=== PATIENT | female | born 2000 | race Caucasian/White ===

== ENCOUNTER 2023-03-23 20:39 | Emergency (ER) | payer MEDICAID, OTHER ==
--- NOTE | 2023-03-23 20:41 | ERPHSYRPT ---
- History of Present Illness Time Seen by Provider: 03/23/23 20:41 Source: patient Exam Limitations: no limitations Physician History: This is a right-handed 22-year-old white female who accidentally cut her left thumb with a knife while trying to separate frozen hamburger patties apart. Patient states her tetanus status is up-to-date. The laceration is on the palmar aspect and measures approximately 2 cm in length Timing/Duration: today Quality: painful Severity: mild Location: hands (Left thumb) Associated Symptoms: denies symptoms Allergies/Adverse Reactions: No Known Drug Allergies Allergy (Verified 03/23/23 20:57) Home Medications: No Reportable Medications [No Reported Medications] 03/23/23 [History] Travel Risk - International Travel Have you traveled outside of the country in past 3 weeks: No - Coronavirus Screening Are you exhibiting any of the following symptoms?: No Close contact with a COVID-19 positive Pt in past 14-21 Days: No - Review of Systems Constitutional: No Symptoms Eyes: No Symptoms Ears, Nose, & Throat: No Symptoms Respiratory: No Symptoms Cardiac: No Symptoms Abdominal/Gastrointestinal: No Symptoms Genitourinary Symptoms: No Symptoms Musculoskeletal: Injury (Left hand) Skin: Other (2 cm laceration left thumb palmar aspect) Neurological: No Symptoms Psychological: No Symptoms Endocrine: No Symptoms Hematologic/Lymphatic: No Symptoms Immunological/Allergic: No Symptoms All Other Systems: Reviewed and Negative - Past Medical History Pertinent Past Medical History: No - Past Surgical History Past Surgical History: No - Nursing Vital Signs Nursing Vital Signs: Initial Vital Signs Temperature 99.0 F 03/23/23 21:01 Pulse Rate 116 H 03/23/23 21:01 Respiratory Rate 18 03/23/23 21:01 Blood Pressure 119/68 03/23/23 21:01 O2 Sat by Pulse Oximetry 100 03/23/23 21:01 Pain Scale Pain Intensity 3 - Physical Exam General Appearance: no apparent distress, alert, anxiety Eye Exam: PERRL/EOMI, eyes nml inspection Ears, Nose, Throat Exam: normal ENT inspection, moist mucous membranes Neck Exam: normal inspection, non-tender, supple, full range of motion Respiratory Exam: airway intact, No chest tenderness, No respiratory distress Cardiovascular Exam: tachycardia Gastrointestinal/Abdomen Exam: No tenderness Pelvic Exam: not done Rectal Exam: not done Back Exam: normal inspection, normal range of motion, No CVA tenderness, No vertebral tenderness Extremity Exam: normal range of motion, pelvis stable, lacerations (2 cm left thumb palmar aspect), tenderness (Left thumb in the area of laceration) Neurologic Exam: alert, oriented x 3, cooperative, chairman & co founder II-XII nml as tested, normal mood/affect, nml cerebellar function, nml station & gait, sensation nml Skin Exam: warm, dry, laceration (2 cm laceration left thumb palmar aspect) Lymphatic Exam: No adenopathy SpO2 Interpretation: normal O2 Delivery: Room Air Procedures - Laceration/Wound Repair Left Volar Finger Time of Procedure: 21:20 Wound Location: Left, hand (Volar aspect left thumb) Wound Length (cm): 2 Wound's Depth, Shape: superficial Wound Explored: clean (Exploration performed in the bloodless field to the base. No foreign body noted) Irrigated: Yes Hibiclens Prep: Yes Anesthesia: 1% Lidocaine Volume Anesthetic (ccs): 2 Wound Repaired With: sutures Suture Size/Type: 3-0, nylon Number of Sutures: 3 Layer Closure?: No - Progress Progress: improved Progress Note: 03/23/23 21:30 This patient's medical issue is 1 of low complexity. The level of complexity in the work-up performed based on review of the patient's past medical history, review of the patient's medication list, review of the patient's drug allergy list, history of present illness and physical findings on examination. No laboratory studies or radiographic studies are necessary. Counseled pt/family regarding: diagnosis, need for follow-up Medical Desision Making - Diagnostic Testing Diagnostic test were ordered, analyzed, and reviewed by me: No - Risk of complications Minimal Risk: Minimal risk of morbidity - Departure Departure Disposition: Home Clinical Impression: Laceration of left thumb Condition: Stable Critical Care Time: No Additional Instructions: Keep the current dressing in place for 24 hours. In the evening of 03/24/2023 at 9 PM you may remove the bandage and wash the site thereafter with soap and water. Blot dry use a hairdryer to dry the site. Reapply antibiotic ointment of choice and a bandage. Suture removal in 8 to 10 days. Use Tylenol and ibuprofen for pain control.
[2023-03-23] MEDS ORDERED: BACIGUENT PACKET ONE (21:46)
[2023-03-23 22:03] VITALS: BP 114/72; PULSE 90; O2SAT 99
== END 2023-03-23 21:55 | disposition home or self-care (01) ==
LOC: ED 20:39
DX: S61.012A Laceration without foreign body of left thumb without damage to nail, initial encounter (principal); W26.0XXA Contact with knife, initial encounter; Z20.828 Contact with and (suspected) exposure to other viral communicable diseases
CPT/HCPCS: 12001; 99281; A9270-GY